=== PATIENT | male | born 1950 | race African-American/Black ===

== ENCOUNTER 2019-07-14 09:27 | Emergency (ER) | payer OTHER, BC ==
[~2019-07-14] VITALS: Ht 170.2 cm; Wt 84.8 kg
--- NOTE | 2019-07-14 09:27 | NUR ---
Patient BIBA BLS, transferred to bed 6. RN evaluating patient at bedside.
[2019-07-14 09:35] VITALS: BP 146/57
--- NOTE | 2019-07-14 10:04 | NUR ---
PT BIBA BLS C/O DIZZINESS UPON STANDING WAS NOT ABLE TO EAT BREAKFAST ACCUCHECK AT 105 VS WERE STABLE ,PT AWAKE , ALERT , AFEBRILE . SCE ,CBS BLF.NEGATIVE NEUROLOGICAL PROBLEM. PMHX PPSD, COLON CA, SKIN CA , HEART PROBLEM. MEDS MV,METOPROLOL,ELIQUIS.LISINOPRIL,ATROVASTATIN,AMLODIPINE,VIT D3 ,TRAMSULOSIN, AMIO,POTASSIUM.
--- NOTE | 2019-07-14 11:01 | NUR ---
DR HI AT BEDSIDE EVALUATING PT.
[2019-07-14 11:22] VITALS: BP 146/72
--- NOTE | 2019-07-14 11:22 | NUR ---
Patient discharged with v/s stable. Written and verbal after care instructions given and explained regarding positional vertigo. Patient alert, oriented and verbalized understanding of instructions. Ambulatory with steady gait. All questions addressed prior to discharge. ID band removed. Patient advised to follow up with PMD. Rx of meclizine given. Patient educated on indication of medication including possible reaction and side effects. Opportunity to ask questions provided and answered.
--- NOTE | 2019-07-14 11:22 | NUR ---
Note wandanew in EDM - 07/14/19 at 1139 by MEDAD Patient discharged with v/s stable. Written and verbal after care instructions given and explained regarding vertigo. Patient alert, oriented and verbalized understanding of instructions. Ambulatory with steady gait. All questions addressed prior to discharge. ID band removed. Patient advised to follow up with PMD. Rx of meclizine given. Patient educated on indication of medication including possible reaction and side effects. Opportunity to ask questions provided and answered.
== END 2019-07-14 11:22 | disposition home or self-care (01) ==
LOC: MED 09:27
DX: R42 Dizziness and giddiness (principal); Z95.1 Presence of aortocoronary bypass graft; Z85.038 Personal history of other malignant neoplasm of large intestine; Z98.890 Other specified postprocedural states
CPT/HCPCS: 99282